=== PATIENT | female | born 1930 | race Caucasian/White ===

== ENCOUNTER 2016-11-03 05:27 | Inpatient (IN) | payer MEDICARE ==
[2016-10-28 13:29] LABS: BASOPHILS 0.5 %; BASOPHILS ABSOLUTE 0.02 10/3/uL (0.0-0.16); EOSINOPHILS 1.8 %; EOSINOPHILS ABSOLUTE 0.07 10/3/uL (0.0-0.53); HEMATOCRIT 37.4 % (36.0-48.0); HEMOGLOBIN 11.8 g/dL (12.0-16.0); IMMATURE GRANULOCYTES 0.3 %; IMMATURE GRANULOCYTES ABSOLUTE 0.01 10/3/uL (0.0-0.11); LYMPHOCYTES 23.7 %; MEAN CORPUS HGB CONC 31.6 g/dL (32.0-36.0); MEAN CORPUSCULAR HEMOGLOB 28.9 pg (26.0-34.0); MEAN CORPUSCULAR VOLUME 91.7 fL (80-100); MONOCYTES 12.1 %; MONOCYTES ABSOLUTE 0.46 10/3/uL (0.21-1.20); NEUTROPHILS 61.6 %; NEUTROPHILS ABSOLUTE 2.33 10/3/uL (2.02-8.40); PLATELET COUNT 227 10/3/uL (150-400); RBC DISTRIBUTION WIDTH 16.7 % (12.0-16.0); RED CELL COUNT 4.08 10/6/uL (4.0-5.6); WHITE BLOOD CELLS 3.8 10/3/uL (4.5-10.5)
[2016-10-28 13:31] LABS: MANUAL DIFF NO %
[2016-10-28 13:35] LABS: ASCORBIC ACID (UR NOT ORDER) NEG (NEG); BILIRUBIN, URINE NEGATIVE (NEG); KETONE, URINE NEGATIVE (NEG); LEUKOCYTE ESTERASE(NOT OR NEG (NEG); WBC (NOT ORDERED) (RFLEX) 3 (0-5)
[2016-10-28 13:39] LABS: INTERNATIONAL NORMAL RATI 1.1 UNITS (-); PROTIME (NOT ORD) 13.6 SEC (12.0-14.5)
[2016-10-28 13:41] LABS: A/G RATIO 1.2 (0.7-1.9); ALBUMIN 3.6 G/DL (3.5-5.0); ALKALINE PHOSPHATASE 88 U/L (45-117); BUN (BLOOD UREA NITROGEN) 18 MG/DL (6-23); CALCIUM, SERUM 9.5 MG/DL (8.5-10.4); CHLORIDE, SERUM 105 MMOL/L (96-112); CO2 (CARBON DIOXIDE) 35 MMOL/L (24-34); CREATININE 0.73 MG/DL (0.55-1.02); GFR AFRICAN AMERICAN 86 ML/MIN (>=60); GFR NON AFRICAN AMERICAN 75 ML/MIN (>=60); GLUCOSE, SERUM 89 MG/DL (60-99); SGOT(AST) 55 U/L (5-40); SGPT(ALT) 44 U/L (5-65); SODIUM, SERUM 143 MMOL/L (135-148); TOTAL BILIRUBIN 0.2 MG/DL (0-1.2); TOTAL PROTEIN 6.6 G/DL (6.0-8.5)
[2016-10-28 13:47] LABS: B NATRIURETIC PEPTIDE (BNP) 329.7 PG/ML (< 100.0)
[2016-10-28 14:00] LABS: GLYCOHEMOGLOBIN (HbA1c) 4.9 % (4.7-6.1)
--- NOTE | ~2016-11-03 | DS ---
Discharge Summary [facility] [address] [place]. [address] NAME: ARBEN STONE : 29 STATUS : DIS IN PAT#: [id number] AGE: 85 ADM/REG DATE : 11/03/16 MR#: [id number] REPORT SERV DATE: 11/23/16 DICTATED BY: MONTRELL LIPSCOMB DATE: 11/22/16 REPORT STATUS : Draft TRANSCRIBED BY: REN DATE: 11/22/16 Data Collection from hospitalization DISCHARGE DIAGNOSES: 1. Aortic stenosis. 2. Hypertension. 3. Coronary artery disease. 4. Chronic obstructive pulmonary disease. 5. Emphysema. 6. Left bundle-branch block. 7. Peripheral vascular disease. 8. Hyperlipidemia. 9. Tobacco use. CONSULTATIONS: Dr. Belgica Rocha, Dr. Juwan Giron. PROCEDURES PERFORMED: Transcatheter aortic valve implantation using a 20 mm Bryan S3 valve from a transthoracic approach; right anterior mini thoracotomy; internal rigid fixation of rib #4 to the sternum; temporary transvenous pacemaker placement, right femoral vein to right ventricle; ascending aortogram; transesophageal echocardiography, 11/03/2016. MEDICATIONS: Cordarone 100 mg daily, Norvasc 5 mg daily, aspirin 81 mg daily, Lipitor 20 mg at bedtime, Plavix 75 mg daily, ferrous sulfate 325 mg twice a day, Prozac 20 mg twice a day, Lasix 20 mg as instructed, melatonin 5 mg at bedtime, Lopressor 12.5 mg twice a day, Protonix 40 mg every morning, Ultram 50 mg three times a day as needed, trazodone 100 mg at bedtime. CONDITION AT DISCHARGE: Stable. DISPOSITION: The patient was discharged home on a 1500-calorie cardiac/diabetic diet with activities as instructed. She would follow up with Zahira Romero, 11/30/2016. She would follow up with Dr. Pineda Delgado, 12/29/2016. She would follow up with Dr. Pineda Bernal, 12/09/2016. HOSPITAL COURSE: This is an 85-year-old female, who has a long history of smoking. She finally stopped smoking last year. She has progressive dyspnea with minimal exertion. She had had multiple falls over the past year with near-syncope and she does admit to postural dizziness, but denied passing out. She does have known severe aortic valvular stenosis. Her most recent echocardiogram demonstrated normal ejection fraction of 60% with mean gradient of 32 and valve area of 0.67. Cardiac catheterization did not demonstrate significant coronary artery disease. On CT angiography, she had severe peripheral vascular disease, which was heavily calcified. She had grade 1 carotid disease bilaterally. She does have significant emphysema with FEV1 of 0.94 and DLCO of 39%. Her major complaint was weakness in the arms and legs. The patient was not felt to be a candidate for transfemoral or subclavian approach. It was felt that she would require a transaortic approach. This would be done to the second and/or third interspace on the right side. This would require intubation with lung isolation, which may presume a challenge; however, it was felt that she would extubate postoperatively. They understood that this was not a standard transcatheter Discharge Summary [address] [address] NAME: ARBEN STONE : 29 STATUS : DIS IN PAT#: [id number] AGE: 85 ADM/REG DATE : 11/03/16 MR#: [id number] REPORT SERV DATE: 11/23/16 DICTATED BY: MONTRELL LIPSCOMB DATE: 11/22/16 REPORT STATUS : Draft TRANSCRIBED BY: REN DATE: 11/22/16 aortic valve replacement procedure and they also understood the possible need for conversion should catastrophic complication occur. She was admitted to the hospital at this time for further evaluation and treatment. Upon admission, the patient was taken to the operating room, where she underwent the above- mentioned procedure by myself and Dr. Juwan Giron. She tolerated this well and there were no complications. Postoperatively, she was seen by Dr. Belgica Rocha. The patient has a greater than 10-vgwa-[id number] history of smoking. She had been smoking up until about a year prior to this admission. She is on inhalers at home and is on at least 1-2 L of oxygen at home. She does have severe chronic obstructive pulmonary disease. Her respiratory status was stable at this point. FiO2 would be weaned for an O2 saturation of 95% to 96%. She is normally on 2 L at home. She was going to be started on DuoNeb. She would be closely observed. Repeat ABG would be performed. We would follow BUN, creatinine, and electrolytes as well as CBC and chest x-ray. On postop day one, she did have some chest soreness. She had mild shortness of breath. She was in a sinus rhythm. She was being diuresed with IV Lasix. Amlodipine was added. She did have some confusion that morning. She had received IV morphine overnight. IV fluids were discontinued. On 11/05/2016, she was up sitting in a chair. She had no chest pain or shortness of breath. She had no groin problems. We encouraged her to increase her activity. Her white count was 14.5. She had no edema. On 11/06/2016, she said she hurt all over. Her encephalopathy was improving. White count was 10.4. She had no shortness of breath. Over the next couple of days, she continued to do well. Discharge planning was performed. She remained in a sinus rhythm. On 11/08/2016, she wanted to go home. She had been up and had taken a shower. She remained in a sinus rhythm-paroxysmal atrial fibrillation. Amiodarone was continued. IV Lasix was stopped. She was placed on oral Lasix. She had no edema. Discharge instructions were given. Due to her improved and stable condition, she was discharged home with the above-stated instructions. Information collected by: Yasmin Allen I submit the above information as my discharge summary. TG/REN Montrell Lipscomb M.D. / [id number] CC: Yoel Barrett M.D. Brian Negus, M.D.
--- NOTE | ~2016-11-03 | OP ---
Record Of Operation [facility] [address]. [address] NAME: ARBEN STONE : 29 STATUS : ADM IN PAT#: [id number] AGE: 85 ADM/REG DATE : 11/03/16 MR#: [id number] REPORT SERV DATE: 11/03/16 DICTATED BY: JUWAN GARY DATE: 11/03/16 REPORT STATUS : Draft TRANSCRIBED BY: MODL DATE: 11/03/16 DATE OF PROCEDURE: TRANSCATHETER VALVE IMPLANTATION PRIMARY TRAILHEAD CONSTRUCTION WORKER: Dr. Delgado. PROCEDURE PERFORMED: 1. Transcatheter aortic valve implantation using a 20 mm Bryan S3 valve from a transaortic approach. 2. Right anterior minithoracotomy. 3. Internal rigid fixation of rib #4 to sternum. 4. Temporary transvenous pacemaker placement right femoral vein to right ventricle. 5. Ascending aortogram. 6. Transesophageal echocardiography. SURGEONS: 1. Fernando Lipscomb MD. 2. Juwan Gary MD. SENIOR SQL SERVER DEVELOPER: Yee Bernal. ANESTHESIA: General and local. SPECIMEN REMOVED: None. ESTIMATED BLOOD LOSS: Less than 50 mL. FLUOROSCOPY TIME: 15.4 minutes, mGy 612. CONTRAST: 120 mL nonionic. COMPLICATIONS: None. PREOPERATIVE DIAGNOSES: 1. Severe aortic stenosis with aortic valve area 0.6 sq cm. 2. Symptomatic with acute on chronic diastolic congestive heart failure. 3. Intermediate surgical risk with STS score of 5.4% mortality and 25% morbidity and mortality. 4. Mild pulmonary hypertension with PA pressure 39/19. 5. Left bundle-branch block. 6. History of GI bleed. 7. COPD. 8. History of tobacco use. 9. Severe peripheral artery disease with inadequate iliac access. 10.Dementia. Record Of Operation [facility] [address] [place]. [address] NAME: ARBEN STONE : 29 STATUS : ADM IN PAT#: [id number] AGE: 85 ADM/REG DATE : 11/03/16 MR#: [id number] REPORT SERV DATE: 11/03/16 DICTATED BY: JUWAN GARY DATE: 11/03/16 REPORT STATUS : Draft TRANSCRIBED BY: MODL DATE: 11/03/16 11.Hyperlipidemia. 12.Hypertension. POSTOPERATIVE DIAGNOSES: 1. Severe aortic stenosis with aortic valve area 0.6 sq cm. 2. Symptomatic with acute on chronic diastolic congestive heart failure. 3. Intermediate surgical risk with STS score of 5.4% mortality and 25% morbidity and mortality. 4. Mild pulmonary hypertension with PA pressure 39/19. 5. Left bundle-branch block. 6. History of GI bleed. 7. COPD. 8. History of tobacco use. 9. Severe peripheral artery disease with inadequate iliac access. 10.Dementia. 11.Hyperlipidemia. 12.Hypertension. 13.Trace perivalvular aortic insufficiency postoperatively. DATA FOR THE VALVE REGISTRY: Time of valve deployment 0944 hours. Preprocedure; mean gradient 29, peak gradient of 33, cardiac output of 2.7 L/minute for an aortic valve area of 0.5 sq cm. Postprocedure; mean gradient of 6, peak gradient of 10 by SHERICE, cardiac output of 3.0 L/minute, and aortic valve area 1.2 sq cm. AI index postoperatively was not performed. Rapid pacing time was 32 seconds. BACKGROUND: Ms. Stone is a very pleasant 85-year-old white woman with severe aortic stenosis symptomatic with acute on chronic diastolic congestive heart failure. She was seen by two cardiac surgeons, Dr. Lipscomb and Dr. Jovel, who felt that she was at least intermediate to high surgical risk due to COPD, dementia, frailty, mild pulmonary hypertension, very poor strength. Her STS score was 5.4% mortality and 25% morbidity and mortality, however, the surgeons felt that this was underestimated and that her operative risk would be higher. She was offered transcatheter aortic valve implantation because of inadequate iliac access or subclavian access. A transaortic approach was considered after this was discussed with the patient and family at length and in detail, and she wished to proceed with transcatheter aortic valve implantation via transaortic approach. TECHNIQUE: After informed written consent was obtained from Ms. Stone, she was brought to the hybrid suite on the morning of 11/03/2006 in the fasting state. The time-out was performed and correct patient and operative plan were confirmed. The patient was prepped and draped in the usual sterile fashion. General anesthesia was performed by the Anesthesia Service. Please see their notes for further details. The local anesthesia in the groin was accomplished using 1% lidocaine. Using modified Seldinger technique and a micropuncture set, a 5-[place] sheath was placed in the right femoral artery with excellent arterial return. The sheath was double flushed and left in place. Femoral angiogram was obtained, which demonstrated good stick in the common femoral artery thought suitable for closure. In a similar manner, a 6-[place] sheath was placed in the right femoral vein with excellent venous return. The sheath was double flushed and left in place. Record Of Operation [facility] [address] [facility] [place]. [address] NAME: ARBEN STONE : 29 STATUS : ADM IN PAT#: [id number] AGE: 85 ADM/REG DATE : 11/03/16 MR#: [id number] REPORT SERV DATE: 11/03/16 DICTATED BY: JUWAN GARY DATE: 11/03/16 REPORT STATUS : Draft TRANSCRIBED BY: REN DATE: 11/03/16 Next, a 5-[place] balloon-tipped pacer catheter was advanced from the RFV to the RV. Threshold was checked, which was less than 0.8 milliamps, this was then set aside. A 5- [place] pigtail catheter was advanced to the central aorta under fluoroscopic guidance. The guidewire was withdrawn, catheter was double flushed. Pressure was obtained. The angles were obtained and ascending aortogram was performed. This was then set aside and continuously flushed. Next, a right anterior minithoracotomy was performed by Dr. Lipscomb. Please see his notes for further details. After exposure of the aorta, concentric pursestring sutures were placed on the aorta. The patient was heparinized to an ACT of greater than 250. Using the modified Seldinger technique and a Seldinger needle, a 6-[place] sheath was placed in the aorta angled in towards the heart under fluoroscopic guidance. The sheath was double flushed and left in place. The first attempt, the sheath was too low on the aorta, the pursestring sutures were closed, and a second stick was performed within new pursestring sutures slightly higher on the aorta. Next, using a multipurpose catheter and a straight guidewire, the aortic valve was crossed. The catheter was then advanced to the LV position and using an exchange J-guidewire, a pigtail catheter was placed. Simultaneous LV and aortic pressures were then obtained. Cardiac output was performed. A preshaped extra stiff wire was then advanced to the LV position. The catheter and sheath were withdrawn from the body. Next, the Davis sheath was placed to approximately 2.5 cm depth and backflushed. Next, the 20 mm Bryan S3 valve was brought to the table on the short shaft, the orientation was confirmed. This was advanced over the wire to the aortic valve position. When all was in readiness, fine positioning was performed and the sequence was commenced. Respirations were held. Rapid pacing was performed. The pressure fell. Power injection was performed, demonstrated good position. The valve was then deployed. The balloon was deflated. Rapid pacing was ceased. Respirations were resumed. Followup angiography revealed significant aortic insufficiency. Transesophageal echocardiogram confirmed that this appeared to be perivalvular as well as centrivalvular. The wire position was lost, but easily rewired with the J-wire and the multipurpose catheter. Next, the balloon was brought back to the table, 2 mL were added, and this was advanced to the aortic valve position. The sequence was commenced again and postdilatation was performed. The balloon was deflated and removed from the body. Followup SHERICE revealed only trace perivalvular aortic insufficiency. This was felt to be an acceptable result as the balloon was brought out, wire position was lost. This was not reestablished since the result by SHERICE looked good and the valve appeared further expanded following the second inflation. The equipment was then removed. The Davis sheath was removed. The pursestring sutures were tightened with good hemostasis. There were no bleeding and no hematoma. Next, the 5-[place] sheath was removed and Exoseal closure device was used. This required adjunctive manual compression. The pacer and right femoral venous sheath was left in place. The [place]a catheter was removed under fluoroscopic guidance and the pacer remained in place. The 4th rib that had been transected, was repaired with internal rigid fixation using titanium plating, and the wound was closed in the usual fashion. A single 24-[place] right pleural drain was placed. The patient tolerated procedure well without apparent complication. She was then returned to her room in good condition. Recommendations are for aspirin 81 mg p.o. daily and Plavix 75 mg p.o. daily for at least six months and aspirin Record Of [facility] [address] [place]. [address] NAME: ARBEN STONE : 29 STATUS : ADM IN PAT#: [id number] AGE: 85 ADM/REG DATE : 11/03/16 MR#: [id number] REPORT SERV DATE: 11/03/16 DICTATED BY: JUWAN GARY DATE: 11/03/16 REPORT STATUS : Draft TRANSCRIBED BY: REN DATE: 11/03/16 indefinitely. YISEL/REN Juwan Gary M.D. / [id number] CC: Yoel Barrett M.D. William Warren, M.D.
--- NOTE | ~2016-11-03 | OP ---
Record Of Operation [facility] [address] [place]. [address] NAME: ARBEN STONE : 29 STATUS : ADM IN PAT#: [id number] AGE: 85 ADM/REG DATE : 11/03/16 MR#: [id number] REPORT SERV DATE: 11/05/16 DICTATED BY: MONTRELL LIPSCOMB DATE: 11/04/16 REPORT STATUS : Draft TRANSCRIBED BY: MODMaurisio DATE: 11/04/16 DATE OF PROCEDURE: 11/03/2016 PREOPERATIVE DIAGNOSES: 1. Aortic valve stenosis. 2. Acute on chronic diastolic congestive heart failure. 3. Left bundle-branch block. 4. Chronic obstructive pulmonary disease. 5. History of gastrointestinal bleed. 6. Near syncope. 7. Hypertension. 8. Peripheral vascular disease. 9. History of tobacco abuse. POSTOPERATIVE DIAGNOSES: 1. Aortic valve stenosis. 2. Acute on chronic diastolic congestive heart failure. 3. Left bundle-branch block. 4. Chronic obstructive pulmonary disease. 5. History of gastrointestinal bleed. 6. Near syncope. 7. Hypertension. 8. Peripheral vascular disease. 9. History of tobacco abuse. PROCEDURE PERFORMED: 1. Trans-aortic transcatheter aortic valve replacement using a 20 mm S3 pericardial valve (WENDY). 2. Right anterior mini-thoracotomy. 3. Internal rigid fixation of rib #4 to the sternum. 4. Aortography. 5. Right transfemoral temporary ventricular pacing wire. 6. Transesophageal echocardiography. SURGEON: Montrell Lipscomb M.D. ASSISTANTS: Juwan Giron M.D. and Ronnie Pickett M.D. ANESTHESIA: General with Dr. Juarez. URBAN ANTHROPOLOGIST: Pineda Bernal M.D., Ph.D, F.A.C.C. PRIMARY RESOURCE ROOM SPECIAL EDUCATION TEACHER: Pineda Delgado M.D. INDICATIONS: This is an 85-year-old female with long history of smoking and quit smoking last year after multiple admissions to the hospital for shortness of breath and fainting Record Of Operation [facility] [address] [place]. [address] NAME: ARBEN STONE : 29 STATUS : ADM IN PAT#: [id number] AGE: 85 ADM/REG DATE : 11/03/16 MR#: [id number] REPORT SERV DATE: 11/05/16 DICTATED BY: MONTRELL LIPSCOMB DATE: 11/04/16 REPORT STATUS : Draft TRANSCRIBED BY: MODL DATE: 11/04/16 like symptoms from October until April. She has had progressive dyspnea with minimal exertion and near syncope and an episode in the last year with multiple falls that she attributes to dizziness. She has known aortic valve stenosis. It was felt to be severe. Her valve area was estimated at 0.67 square centimeter with a mean gradient across the valve at 32 mmHg and ejection fraction of 60%. She underwent a cardiac catheterization, which did not demonstrate any surgically significant coronary artery disease but she has severe peripheral vascular disease with vessels that are very small and heavily calcified and not approachable through a transfemoral or subclavian route for TAVR procedure. We saw the patient in the TAVR Clinic, and it was felt that she was a reasonable candidate for TAVR using an alternative approach. It was felt that the most likely successful approach would be a trans-aortic through a right mini thoracotomy anteriorly. This was discussed with the patient and her family and after discussing the operations, indication, risks, they wished to proceed. Her preoperative FEV1 was 0.94 L with a DLCO of only 39%. Because the patient was at elevated surgical risks for aortic valve replacement in the traditional trans-sternal route, she was offered a TAVR procedure. FINDINGS AT OPERATION: 1. Total time of rapid pacing was 32 seconds. Actual time of TAVR deployment was 09:44 a.m. 2. Cardiac output pre-deployment 2.7, post-deployment 3.0 L/minute. 3. Valve area pre-deployment 0.53, valve area post-deployment 1.22 square centimeter. 4. Pre-implant aortic pressures: Systolic 175, diastolic 66, mean 107 mmHg. 5. Postimplant aortic pressures: Pre-systolic 126, diastolic 46, mean 69 mmHg. 6. Pre-implant AV gradient; mean 29, peak 33 mmHg. Post-implant AV gradient mean 6, peak 10 mmHg. 7. Total contrast volume used 120 mL. 8. Fluro time 15.4 minutes. 9. Estimated blood loss less than 50 mL. 10.Total mGy used was 612. 11.Aortic index was not calculated at the time of implantation. PATHOLOGIC SPECIMENS: None. DESCRIPTION OF PROCEDURE: The patient was brought to the operating suite where general anesthesia was induced, and the airway was secured with a dual lumen endotracheal tube. Lines secured by Anesthesia. The patient's SHERICE probe was placed, and examination carried out confirming severe aortic valve stenosis. Microneedle access to the right femoral artery vein were obtained, and a 6-Cymraes introducers were placed into both vessels after confirmation angiography was performed of right femoral iliac system. A pigtail catheter was placed over guidewire into the ascending aorta and secured in the noncoronary cusps, and contrast aortography was used to confirm imaging planes for implantation of the valve. Then, a temporary transvenous pacing wire was placed up the right femoral vein into the right ventricle, and this was secured after confirming capture for pacing. Record Of Operation [facility] [address] [facility] [place]. [address] NAME: ARBEN STONE : 29 STATUS : ADM IN PAT#: [id number] AGE: 85 ADM/REG DATE : 11/03/16 MR#: [id number] REPORT SERV DATE: 11/05/16 DICTATED BY: MONTRELL LIPSCOMB DATE: 11/04/16 REPORT STATUS : Draft TRANSCRIBED BY: REN DATE: 11/04/16 Then, right anterior thoracotomy incision was made paramedian to the sternum on the right side and carried through subcutaneous tissue. The third intercostal space was identified and the fourth rib was divided at its attachment to the sternum. We then continued our dissection through the intercostal musculature, and the internal mammary artery and vein were ligated with clips and divided. This allowed us good exposure of the ascending aorta and pericardium. The pericardium was incised, and tacking sutures placed. Then, heparin was administered by Anesthesia. Two concentric pursestring sutures with pledgets were placed in the lateral wall of the ascending aorta just near the pericardial reflection. Needle was placed in the ascending aorta and guidewire and a 6-Cymraes introducer placed at this level. We then placed an AL1 catheter and guidewire through the 6-Cymraes introducer and used this across the valve. Then, this AL1 catheter was removed and exchanged for a pigtail catheter over the wire that was through the aortic valve. Pressure measurements were obtained and then the Extra-Stiff wire placed through the pigtail catheter into the left ventricle and the pigtail catheter removed. The introducer and sheath, we then placed over the Extra-Stiff wire and directed into the ascending aorta. Then, the valve delivery system was brought up to the field. Orientation of the valve was confirmed. The valve delivery system was then placed into the introducer sheath and lowered across the valve. Contrast aortography was performed to allow good visualization of the position of the valve. Once positioning was secured, rapid atrial pacing was performed, and the valve deployed using the pre-loaded balloon. Once this was completed, the valve delivery system and balloon were brought out of the valve into the sheath. Contrast aortography demonstrated aortic insufficiency, and SHERICE demonstrated mild aortic insufficiency. It was decided after discussion to go ahead and do post implantation dilatation of the valve using the balloon delivery system. The syringe was then loaded with 2 more mL of contrast. The balloon was then delivered across the valve over the Extra-Stiff wire. Rapid ventricular pacing was again performed, and the balloon was inflated for several seconds. The balloon was then deflated and brought back into the delivery system sheath. The balloon was then withdrawn over the guidewire and the guidewire removed. Contrast aortography using the pigtail catheter demonstrated minimal aortic insufficiency. SHERICE demonstrated just a trivial perivalvular leak. At this point, the sheath was removed from the ascending aorta with temporary rapid ventricular pacing and the pursestring sutures tied and secured. Rapid pacing was discontinued then. The patient was doing well. There was good hemostasis of the pursestring sutures. Protamine was administered by Anesthesia for reversal of heparin. Then, the chest was irrigated with saline. A 24 Juan drain was placed through the right chest and directed Record Of Operation [address] [address] NAME: ARBEN STONE : 29 STATUS : ADM IN [facility]#: [id number] AGE: 85 ADM/REG DATE : 11/03/16 MR#: [id number] REPORT SERV DATE: 11/05/16 DICTATED BY: MONTRELL LIPSCOMB DATE: 11/04/16 REPORT STATUS : Draft TRANSCRIBED BY: MODMaurisio DATE: 11/04/16 over the pericardium near the aortotomy site. The pericardial retaining sutures were removed and then the closure was begun. The fourth, third rib was then reattached to the sternum using a single straight titanium plate and 4 titanium screws. The clavipectoral fascia and pectoralis muscle reapproximated over the rib space with Stratafix suture. The subcutaneous tissue was closed and skin closed in subcuticular fashion. The patient tolerated the procedure well. The pigtail catheter and 6-Cymraes introducer sheath removed from the right femoral artery, and this site was closed with the occlusion device. The temporary pacemaker in the right femoral vein was removed and the sheath left in place for postoperative monitoring and in case of need for pacing at a later time. Finally, the Orlando-Daniela catheter that was left in place during this time was removed in the intensive care unit. The patient tolerated the procedure well. There were no complications. Sponge and needle counts were correct. DISPOSITION: The patient was extubated in the operating suite and transported to the Intensive Care Unit in stable condition. WILIAM/REN Montrell Lipscomb M.D. / [id number] CC: Yoel Barrett M.D. Pineda Bernal M.D., Ph.D, F.A.C.C. Pineda Delgado M.D.
--- NOTE | ~2016-11-03 | PREOPHP ---
PreOp History and Physical [place] [id number] [facility] [place]. [address] NAME: ARBEN STONE : 29 STATUS : ADM IN PAT#: [id number] AGE: 85 ADM/REG DATE : 11/03/16 MR#: [id number] REPORT SERV DATE: 11/03/16 DICTATED BY: AMARJIT SPENCER DATE: 11/03/16 REPORT STATUS : Draft TRANSCRIBED BY: REN DATE: 11/03/16 CHIEF COMPLAINT: "I have aortic stenosis." HISTORY OF PRESENT ILLNESS: This is a very pleasant 85-year-old female with a long history of smoking, who finally quit smoking last year. She has progressive dyspnea with minimal exertion. She has had multiple falls in the past year with near-syncope and admits to postural dizziness, but denies passing out. She has known severe aortic valvular stenosis. Her most recent echocardiogram demonstrated normal EF of 60% with a mean gradient of 32 and a valve area of 0.67. Cardiac catheterization did not demonstrate significant coronary artery disease. On CT angio, she has severe peripheral vascular disease which is heavily calcified. She has grade 1 carotid disease bilaterally. She has significant emphysema with an FEV1 of 0.94 and a DLCO of 39%. Major complaint is weakness in the arms and legs. PAST MEDICAL HISTORY: 1. Dizziness. 2. Emphysema. 3. Left bundle branch block. 4. GI bleed. 5. Aortic stenosis. 6. Mild coronary artery disease. 7. Carotid disease. 8. Hyperlipidemia. 9. Hypertension. 10.Peripheral vascular disease. FAMILY HISTORY: Brother a premature of coronary artery disease. SOCIAL HISTORY: Recent smoking history. MEDICATIONS: 1. Amiodarone 200 mg, take one-half tablet orally every day. 2. Lipitor 20 mg daily. 3. Enalapril 5 mg/hydrochlorothiazide 12.5 mg, take 1 tablet every day. 4. Iron sulfate 325 mg, take 1 every day. 5. Fluoxetine 20 mg, take one 2 times a day. 6. Lasix 20 mg, take 1 every Tuesday as needed. 7. Melatonin 5 mg at bedtime. 8. Multivitamin 1 daily at bedtime. 9. Tylenol 500 mg as needed. 10.Protonix 40 mg p.o. b.i.d. 11.Senokot 8.6 mg p.o. daily. 12.Tramadol 50 mg p.o. 3 times daily as needed. REVIEW OF SYSTEMS: CONSTITUTIONAL: Negative for fever. Positive for activity change, fatigue, irritability, and weakness. EYES: Negative for visual changes. PreOp History and Physical [address] [place]. [address] NAME: ARBEN STONE : 29 STATUS : ADM IN PAT#: [id number] AGE: 85 ADM/REG DATE : 11/03/16 MR#: [id number] REPORT SERV DATE: 11/03/16 DICTATED BY: AMARJIT SPENCER DATE: 11/03/16 REPORT STATUS : Draft TRANSCRIBED BY: REN DATE: 11/03/16 ENT: Negative for hearing loss. RESPIRATORY: Negative for snoring, hemoptysis. Positive for dyspnea and dyspnea on exertion. CARDIAC: Negative for diaphoresis, palpitations, syncope. Positive for near syncope and orthopnea. VASCULAR: Negative for claudication or edema. Positive for leg swelling. GI: Negative for reflux or bleeding. Positive for melena. : Negative for nocturia or hematuria. ENDOCRINE: Negative for goiter or tremor. NEUROLOGIC: Negative for dizziness, memory loss. PSYCH: Negative for hallucinations. SKIN: Negative for rash. MUSCULOSKELETAL: Denies joint pain or myalgia. HEMATOLOGY: Denies easy bleeding or bruising. PHYSICAL EXAMINATION: CONSTITUTIONAL: A well-developed, well-nourished white female, in no acute distress. EYES: Normal sclerae. NECK: No masses, no bruits. RESPIRATORY: Clear to auscultation bilaterally. HEART: Regular rate and rhythm. Holosystolic murmur heard at the right upper sternal border. ABDOMEN: Soft, nontender, nondistended. SKIN: Warm and dry. NEUROLOGIC: Cranial nerves 2 through 12 grossly intact. PSYCH: Oriented to person, time, place, and procedure. IMPRESSION AND PLAN: An 85-year-old female with a long history of smoking and significant aortic valvular stenosis. Her STS predicted risk of mortality with open valvular replacement is at least 5.4%. I think this severely underestimates her risk secondary to her severe COPD and an age. She is not a candidate for transfemoral or subclavian approach. She will require transaortic approach. This will be done through the second and/or third interspace on the right side. 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 She understands that this is not a standard transcatheter aortic valve replacement procedure. They also understand the possible need for conversion should catastrophic complication occur. Risks, benefits, and alternatives were discussed including but not limited to, bleeding, infection, stroke, , heart attack, need for future operations, and need for pacemaker. All questions were answered. OG/REN arjit Spencer MD PreOp History and Physical [address] [address] NAME: ARBEN STONE : 29 STATUS : ADM IN [facility]#: [id number] AGE: 85 ADM/REG DATE : 11/03/16 MR#: [id number] REPORT SERV DATE: 11/03/16 DICTATED BY: AMARJIT SPENCER DATE: 11/03/16 REPORT STATUS : Draft TRANSCRIBED BY: REN DATE: 11/03/16 / [id number] CC: Yoel Barrett M.D.
--- NOTE | ~2016-11-03 | CN ---
Consultation Report [facility] [address] [place]. [address] NAME: ARBEN STONE : 29 STATUS : ADM IN PAT#: [id number] AGE: 85 ADM/REG DATE : 11/03/16 MR#: [id number] REPORT SERV DATE: 11/03/16 DICTATED BY: FREDRICK ROCHA DATE: 11/03/16 REPORT STATUS : Draft TRANSCRIBED BY: MODL DATE: 11/03/16 DATE OF CONSULTATION: 11/03/2016 HISTORY OF PRESENT ILLNESS: This is an 85-year-old patient whom we were asked to see for pulmonary and COPD management status post TAVR. The patient has known COPD and has a greater than [id number] history of smoking and had been smoking probably up until a year ago. She has been seen by the pulmonary service before and her most recent pulmonary function tests showed a forced vital capacity of 91% predicted and an FEV1 of 0.94 which is 74% predicted. Total lung capacity is 132% with increased residual volume and DLCO was 39% predicted. The patient is on inhalers at home and is on at least 1-2 L of oxygen at home. She has known severe aortic stenosis and was not deemed to be a candidate for conventional open chest aortic valve replacement and was scheduled for a TAVR and required a transaortic approach since she has severe calcification of the aorta and has a known peripheral vascular disease. This was done today. She currently is extubated, responsive, and on oxygen. She is on no pressors. So, we are asked to see her for postoperative care. ALLERGIES: TO PENICILLIN, BENADRYL, CODEINE, AND XANAX. HOME MEDICATIONS: Include Cordarone, Prozac, Lasix, melatonin, Protonix, trazodone, Ultram, Vaseretic, ProAir, ferrous sulfate, Lipitor, and Tylenol. PAST MEDICAL HISTORY: Includes, 1. AFib, not anticoagulated for AFib because of recurrent GI bleeding. Her last admission for GI bleed was in 02/2016. She did have an EGD and colonoscopy done in 02/2016 that showed several diverticula in the sigmoid colon, two small angioectasias in the ascending colon. No other significant abnormalities. EGD showed a small hiatus hernia and no other significant findings. 2. History of left bundle-branch block. 3. History of frequent falls and dizziness. 4. COPD and emphysema. 5. Mild coronary artery disease. 6. Aortic stenosis. 7. Carotid disease. 8. Hypertension. 9. Peripheral vascular disease. 10.Osteoarthritis. 11.Deconditioning. 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 13.Hyperlipidemia. PAST SURGICAL HISTORY: 1. The patient has history of coronary artery stenting done by Dr. Rivas in 2008. 2. Cardiac cath in 2012. 3. Left carotid artery stent placement. Consultation Report [address] [address] NAME: ARBEN STONE : 29 STATUS : ADM IN PAT#: [id number] AGE: 85 ADM/REG DATE : 11/03/16 MR#: [id number] REPORT SERV DATE: 11/03/16 DICTATED BY: FREDRICK ROCHA DATE: 11/03/16 REPORT STATUS : Draft TRANSCRIBED BY: REN DATE: 11/03/16 4. Bladder tack. 5. C-spine fusion. 6. Total abdominal hysterectomy. 7. Appendectomy. 8. Breast lumpectomy. 9. Epidural disk injection. 10.Lumbar disk injection. 11.Breast cyst removal and skin cancer melanoma removal. FAMILY HISTORY: Significant for coronary artery disease and hypertension. SOCIAL HISTORY: The patient is a , has three children. She has a history of smoking as mentioned above. There is no history of alcohol or illicit drug use. REVIEW OF SYSTEMS: The biggest complaint for the patient is back pain at this point. She denies any nausea, vomiting, shortness of breath, or abdominal pain, and the remainder of a 10-point review of systems is unremarkable. PHYSICAL EXAMINATION: VITAL SIGNS: Her heart rate is 73, blood pressure by A-line is 158/53, O2 saturation is 100%, cuff pressure is 104/69. She is afebrile. Respiratory rate is 18-22. GENERAL: The patient appears somewhat pale. She is responsive. SKIN: Warm and dry. HEENT: Head is atraumatic and normocephalic. Pupils are equal and sluggish. Sclerae anicteric. Conjunctivae pink. Nasal mucosa within normal limits. Oral mucosa is slightly dry. NECK: With right internal jugular central line. No thyromegaly is noted. LUNGS: Significant for diminished breath sounds at the bases. No wheezing. CARDIAC: Reveals a regular rate and rhythm. Soft 2/6 systolic murmur heard at the left sternal border. Choctaw valve sounds are heard. There is a small incision in the midsternal area that is transverse. BREASTS: Symmetrical. No masses. ABDOMEN: Obese, nondistended, nontender. Bowel sounds are present, but diminished. She has a Wesley catheter in place and she has a right femoral pacemaker in place. EXTREMITIES: Without cyanosis or clubbing. There is trace edema. NEUROLOGIC: Cranial nerves 2 through 12 are grossly intact. Motor and sensory are intact and there are no focal findings at this exam. LABORATORY DATA: Chest x-ray shows mild pulmonary vascular congestion. Sodium is 145, potassium is 3.8, chloride is 111, bicarb is 24, BUN 17, creatinine 0.56. Blood sugar 133. Magnesium is 1.7. Hemoglobin is 10, hematocrit is 32. ASSESSMENT AND PLAN: This is an 85-year-old patient with severe chronic obstructive pulmonary disease, peripheral vascular disease, aortic stenosis, mild coronary artery Consultation Report [place] [id number] [place]. [address] NAME: ARBEN STONE : 29 STATUS : ADM IN [facility]#: [id number] AGE: 85 ADM/REG DATE : 11/03/16 MR#: [id number] REPORT SERV DATE: 11/03/16 DICTATED BY: FREDRICK ROCHA DATE: 11/03/16 REPORT STATUS : Draft TRANSCRIBED BY: REN DATE: 11/03/16 disease, history of gastrointestinal bleed, who was not considered to be a candidate for aortic valve replacement by conventional means. She is status post aortic approach for transcatheter aortic valve replacement today and we are asked to see her postoperatively mostly because of her chronic obstructive pulmonary disease. At this time, the patient's respiratory status is stable. We will wean the FiO2 for an O2 saturation of 95-96. She is normally on 2 L at home. We will start DuoNeb. We will observe the patient closely, repeat an ABG now, and follow BUN, creatinine, and electrolytes as well as CBC and a chest x-ray tomorrow. We will follow the patient with you. Thank you for your consultation. BRENDEN/REN Fredrick Rocha M.D. / [id number] CC: Yoel Barrett M.D.
[~2016-11-03 05:27] MED LIST: ACET500CAP PO; ALBUTEROL 2.5 MG PO; ALBUTEROL5 INH; ASAB PO; ATV1 PO; BONIVA150 MG PO; BUSPAR15 M1 PO; CALTRA600D PO; CELEBREX2 PO; CENTRUM PO; CORDARONE PO; CRANBERRY AZO PO; CRESTOR40 MG PO; CYANO1000T PO; DULERA 100 MCG/13 GM INH; ENALAPRIL/HCTZ PO; FERREX 150150 MG PO; FERROUS SULF325 M1 PO; FOSAMAX70 MG PO; HALF81 PO; HYDROCHLOROT12.5 MG PO; KLOR-CON 1010 MEQ PO; L20 PO; LIPITOR20 PO; LIPITOR40 PO; LIPITOR80 MG PO; MELA3 PO; MICROZIDE PO; MOBIC15 MG PO; MULTIPLE VIT PO; MYCOSCROI TOP; OS500+D PO; PLAVIX PO; PROAIR HFA INH; PROTONIX PO; PROVHFA INH; PROZ10 PO; PROZAC PO; SALON PAS TOP; SENTAB PO; SPIRIVA INH; T PO; TRAZODONE150 MG PO; TYLENOL PM PO; ULTRAM50 PO; VASERETIC5 PO; VASOTEC10 PO; VASOTEC5 PO; VENTOLIN HFA INH; VITAMIN B-121000 MC1 SL; VITAMIN D1000 UNI1 PO; VITAMIN D31000 UNIT PO; VITC500 PO
[2016-11-03 11:28] LABS: HEMOGLOBIN 10.2 g/dL (12.0-16.0); PLATELET COUNT 166 10/3/uL (150-400)
[2016-11-03 11:37] LABS: INTERNATIONAL NORMAL RATI 1.2 UNITS (-); PROTIME (NOT ORD) 14.9 SEC (12.0-14.5)
[2016-11-03 11:39] LABS: BUN (BLOOD UREA NITROGEN) 17 MG/DL (6-23); CALCIUM, SERUM 8.6 MG/DL (8.5-10.4); CHLORIDE, SERUM 111 MMOL/L (96-112); CREATININE 0.56 MG/DL (0.55-1.02); GFR AFRICAN AMERICAN 98 ML/MIN (>=60); GFR NON AFRICAN AMERICAN 84 ML/MIN (>=60); POTASSIUM, SERUM 3.8 MMOL/L (3.5-5.3); SODIUM, SERUM 145 MMOL/L (135-148)
[2016-11-03 11:40] LABS: CO2 (CARBON DIOXIDE) 29 MMOL/L (24-34); GLUCOSE, SERUM 133 MG/DL (60-99)
[2016-11-03 18:41] LABS: HEMATOCRIT 32.4 % (36.0-48.0); HEMOGLOBIN 10.2 g/dL (12.0-16.0)
[2016-11-03 18:50] LABS: BUN (BLOOD UREA NITROGEN) 16 MG/DL (6-23); CALCIUM, SERUM 8.1 MG/DL (8.5-10.4); CHLORIDE, SERUM 111 MMOL/L (96-112); CO2 (CARBON DIOXIDE) 30 MMOL/L (24-34); CREATININE 0.59 MG/DL (0.55-1.02); GFR AFRICAN AMERICAN 96 ML/MIN (>=60); GFR NON AFRICAN AMERICAN 83 ML/MIN (>=60); POTASSIUM, SERUM 3.9 MMOL/L (3.5-5.3); SODIUM, SERUM 146 MMOL/L (135-148)
[2016-11-03 18:52] LABS: GLUCOSE, SERUM 60 MG/DL (60-99)
[2016-11-04 03:32] LABS: BE (BASE EXCESS) -1.2 MEQ/L (0 +/- 2.5); HCO3 (ACTUAL BICARBONATE) 24.2 MEQ/L (23-27); INSTRUMENT SERIAL # 11843; PCO2 (CO2 TENSION) 44 MMHG (35-45); PO2 (O2 TENSION) 86 MMHG (79-93); pH 7.36 (7.37-7.43)
[2016-11-04 03:33] LABS: BIPAP 18/5 cm.H2O; CARBOXYHEMOGLOBIN 0.3 % (0-3); HEMOBLOGIN CONTENT 10.3 G/DL (12-16); METHEMOGLOBIN 0.5 % (0-3); O2 CONTENT 13.8 VOL% (18-24); OPERATOR ID 23712; SAMPLE Arterial
[2016-11-04 03:35] LABS: BASOPHILS 0 %; EOSINOPHILS 0 %; HEMATOCRIT 29.6 % (36.0-48.0); HEMOGLOBIN 9.3 g/dL (12.0-16.0); IMMATURE GRANULOCYTES 0.2 %; IMMATURE GRANULOCYTES ABSOLUTE 0.03 10/3/uL (0.0-0.11); LYMPHOCYTES 5.8 %; LYMPHOCYTES ABSOLUTE 0.72 10/3/uL (0.67-4.30); MANUAL DIFF NO %; MEAN CORPUS HGB CONC 31.4 g/dL (32.0-36.0); MEAN CORPUSCULAR VOLUME 92.2 fL (80-100); MEAN PLATELET VOLUME 10.3 fL (9.2-13.0); MONOCYTES ABSOLUTE 0.98 10/3/uL (0.21-1.20); NEUTROPHILS ABSOLUTE 10.59 10/3/uL (2.02-8.40); PLATELET COUNT 161 10/3/uL (150-400); RBC DISTRIBUTION WIDTH 16.8 % (12.0-16.0); RED CELL COUNT 3.21 10/6/uL (4.0-5.6); WHITE BLOOD CELLS 12.3 10/3/uL (4.5-10.5)
[2016-11-04 03:42] LABS: BUN (BLOOD UREA NITROGEN) 17 MG/DL (6-23); CALCIUM, SERUM 8.4 MG/DL (8.5-10.4); CHLORIDE, SERUM 111 MMOL/L (96-112); CO2 (CARBON DIOXIDE) 27 MMOL/L (24-34); CREATININE 0.74 MG/DL (0.55-1.02); GFR AFRICAN AMERICAN 85 ML/MIN (>=60); GFR NON AFRICAN AMERICAN 73 ML/MIN (>=60); PHOSPHORUS, SERUM 2.6 MG/DL (2.5-4.5); POTASSIUM, SERUM 4.1 MMOL/L (3.5-5.3); SODIUM, SERUM 145 MMOL/L (135-148)
[2016-11-04 03:43] LABS: GLUCOSE, SERUM 93 MG/DL (60-99)
[2016-11-04 10:22] LABS: ASCORBIC ACID (UR NOT ORDER) NEG (NEG); BILIRUBIN, URINE NEGATIVE (NEG); KETONE, URINE TRACE MG/DL (NEG); LEUKOCYTE ESTERASE(NOT OR NEG (NEG); WBC (NOT ORDERED) (RFLEX) 3 (0-5)
[2016-11-04 12:27] LABS: BUN (BLOOD UREA NITROGEN) 16 MG/DL (6-23); CALCIUM, SERUM 8.7 MG/DL (8.5-10.4); CHLORIDE, SERUM 110 MMOL/L (96-112); CO2 (CARBON DIOXIDE) 28 MMOL/L (24-34); CREATININE 0.72 MG/DL (0.55-1.02); GFR AFRICAN AMERICAN 88 ML/MIN (>=60); GFR NON AFRICAN AMERICAN 76 ML/MIN (>=60); GLUCOSE, SERUM 118 MG/DL (60-99); POTASSIUM, SERUM 3.7 MMOL/L (3.5-5.3); SODIUM, SERUM 144 MMOL/L (135-148)
[2016-11-04 15:50] LABS: HEMOGLOBIN 10.6 g/dL (12.0-16.0)
[2016-11-04 15:54] LABS: HEMATOCRIT 34.1 % (36.0-48.0)
[2016-11-04 15:55] LABS: POTASSIUM, SERUM 4.4 MMOL/L (3.5-5.3)
[2016-11-05 03:39] LABS: BASOPHILS 0.1 %; BASOPHILS ABSOLUTE 0.01 10/3/uL (0.0-0.16); EOSINOPHILS 0 %; HEMATOCRIT 31.2 % (36.0-48.0); HEMOGLOBIN 9.9 g/dL (12.0-16.0); IMMATURE GRANULOCYTES 0.4 %; IMMATURE GRANULOCYTES ABSOLUTE 0.06 10/3/uL (0.0-0.11); LYMPHOCYTES 3.8 %; LYMPHOCYTES ABSOLUTE 0.55 10/3/uL (0.67-4.30); MANUAL DIFF NO %; MEAN CORPUS HGB CONC 31.7 g/dL (32.0-36.0); MEAN CORPUSCULAR HEMOGLOB 29.3 pg (26.0-34.0); MEAN CORPUSCULAR VOLUME 92.3 fL (80-100); MEAN PLATELET VOLUME 11.2 fL (9.2-13.0); MONOCYTES 11.9 %; MONOCYTES ABSOLUTE 1.72 10/3/uL (0.21-1.20); NEUTROPHILS 83.8 %; NEUTROPHILS ABSOLUTE 12.11 10/3/uL (2.02-8.40); PLATELET COUNT 131 10/3/uL (150-400); RBC DISTRIBUTION WIDTH 17.9 % (12.0-16.0); RED CELL COUNT 3.38 10/6/uL (4.0-5.6); WHITE BLOOD CELLS 14.5 10/3/uL (4.5-10.5)
[2016-11-05 04:00] LABS: BUN (BLOOD UREA NITROGEN) 18 MG/DL (6-23); CALCIUM, SERUM 8.4 MG/DL (8.5-10.4); CHLORIDE, SERUM 109 MMOL/L (96-112); CO2 (CARBON DIOXIDE) 30 MMOL/L (24-34); CREATININE 0.64 MG/DL (0.55-1.02); GFR AFRICAN AMERICAN 94 ML/MIN (>=60); GFR NON AFRICAN AMERICAN 81 ML/MIN (>=60); GLUCOSE, SERUM 113 MG/DL (60-99); POTASSIUM, SERUM 3.9 MMOL/L (3.5-5.3); SGOT(AST) 215 U/L (5-40); SGPT(ALT) 92 U/L (5-65); SODIUM, SERUM 142 MMOL/L (135-148); TOTAL BILIRUBIN 0.5 MG/DL (0-1.2); TOTAL PROTEIN 5.4 G/DL (6.0-8.5)
[2016-11-05 04:09] LABS: ALBUMIN 2.7 G/DL (3.5-5.0); ALKALINE PHOSPHATASE 56 U/L (45-117); GLOBULIN 2.7 G/DL (2.5-4.1)
[2016-11-06 05:21] LABS: BASOPHILS 0.1 %; BASOPHILS ABSOLUTE 0.01 10/3/uL (0.0-0.16); EOSINOPHILS 0.1 %; EOSINOPHILS ABSOLUTE 0.01 10/3/uL (0.0-0.53); HEMATOCRIT 29.8 % (36.0-48.0); HEMOGLOBIN 9.5 g/dL (12.0-16.0); IMMATURE GRANULOCYTES 0.1 %; IMMATURE GRANULOCYTES ABSOLUTE 0.01 10/3/uL (0.0-0.11); LYMPHOCYTES 4.1 %; LYMPHOCYTES ABSOLUTE 0.42 10/3/uL (0.67-4.30); MEAN CORPUS HGB CONC 31.9 g/dL (32.0-36.0); MEAN CORPUSCULAR HEMOGLOB 29.4 pg (26.0-34.0); MEAN CORPUSCULAR VOLUME 92.3 fL (80-100); MEAN PLATELET VOLUME 11.3 fL (9.2-13.0); MONOCYTES 11.6 %; NEUTROPHILS ABSOLUTE 8.72 10/3/uL (2.02-8.40); PLATELET COUNT 115 10/3/uL (150-400); RBC DISTRIBUTION WIDTH 18.1 % (12.0-16.0); RED CELL COUNT 3.23 10/6/uL (4.0-5.6); WHITE BLOOD CELLS 10.4 10/3/uL (4.5-10.5)
[2016-11-06 05:22] LABS: MANUAL DIFF NO %
[2016-11-06 05:27] LABS: INTERNATIONAL NORMAL RATI 1.2 UNITS (-); PROTIME (NOT ORD) 15.4 SEC (12.0-14.5)
[2016-11-06 05:38] LABS: ALBUMIN 2.6 G/DL (3.5-5.0); ALKALINE PHOSPHATASE 60 U/L (45-117); BUN (BLOOD UREA NITROGEN) 19 MG/DL (6-23); CALCIUM, SERUM 8.5 MG/DL (8.5-10.4); CHLORIDE, SERUM 108 MMOL/L (96-112); CO2 (CARBON DIOXIDE) 29 MMOL/L (24-34); CREATININE 0.55 MG/DL (0.55-1.02); GFR AFRICAN AMERICAN 98 ML/MIN (>=60); GFR NON AFRICAN AMERICAN 85 ML/MIN (>=60); GLOBULIN 2.7 G/DL (2.5-4.1); PHOSPHORUS, SERUM 1.8 MG/DL (2.5-4.5); POTASSIUM, SERUM 3.9 MMOL/L (3.5-5.3); SGOT(AST) 120 U/L (5-40); SGPT(ALT) 74 U/L (5-65); SODIUM, SERUM 143 MMOL/L (135-148); TOTAL PROTEIN 5.3 G/DL (6.0-8.5)
[2016-11-06 05:39] LABS: GLUCOSE, SERUM 85 MG/DL (60-99)
[2016-11-07 04:45] LABS: BASOPHILS 0.1 %; BASOPHILS ABSOLUTE 0.01 10/3/uL (0.0-0.16); EOSINOPHILS 0.8 %; EOSINOPHILS ABSOLUTE 0.06 10/3/uL (0.0-0.53); HEMATOCRIT 29.8 % (36.0-48.0); HEMOGLOBIN 9.4 g/dL (12.0-16.0); IMMATURE GRANULOCYTES 0.1 %; IMMATURE GRANULOCYTES ABSOLUTE 0.01 10/3/uL (0.0-0.11); LYMPHOCYTES 7.9 %; LYMPHOCYTES ABSOLUTE 0.57 10/3/uL (0.67-4.30); MEAN CORPUS HGB CONC 31.5 g/dL (32.0-36.0); MEAN CORPUSCULAR HEMOGLOB 28.8 pg (26.0-34.0); MEAN CORPUSCULAR VOLUME 91.4 fL (80-100); MEAN PLATELET VOLUME 10.5 fL (9.2-13.0); MONOCYTES 14.3 %; MONOCYTES ABSOLUTE 1.04 10/3/uL (0.21-1.20); NEUTROPHILS 76.8 %; NEUTROPHILS ABSOLUTE 5.56 10/3/uL (2.02-8.40); PLATELET COUNT 146 10/3/uL (150-400); RBC DISTRIBUTION WIDTH 18.1 % (12.0-16.0); RED CELL COUNT 3.26 10/6/uL (4.0-5.6); WHITE BLOOD CELLS 7.3 10/3/uL (4.5-10.5)
[2016-11-07 04:46] LABS: MANUAL DIFF NO %
[2016-11-07 04:59] LABS: A/G RATIO 0.9 (0.7-1.9); ALBUMIN 2.4 G/DL (3.5-5.0); ALKALINE PHOSPHATASE 62 U/L (45-117); BUN (BLOOD UREA NITROGEN) 20 MG/DL (6-23); CALCIUM, SERUM 8.4 MG/DL (8.5-10.4); CHLORIDE, SERUM 106 MMOL/L (96-112); CREATININE 0.54 MG/DL (0.55-1.02); GFR AFRICAN AMERICAN 99 ML/MIN (>=60); GFR NON AFRICAN AMERICAN 85 ML/MIN (>=60); GLOBULIN 2.8 G/DL (2.5-4.1); GLUCOSE, SERUM 84 MG/DL (60-99); PHOSPHORUS, SERUM 2.2 MG/DL (2.5-4.5); POTASSIUM, SERUM 3.8 MMOL/L (3.5-5.3); SGOT(AST) 62 U/L (5-40); SGPT(ALT) 51 U/L (5-65); SODIUM, SERUM 145 MMOL/L (135-148); TOTAL BILIRUBIN 0.8 MG/DL (0-1.2); TOTAL PROTEIN 5.2 G/DL (6.0-8.5)
[2016-11-07 05:01] LABS: CO2 (CARBON DIOXIDE) 34 MMOL/L (24-34)
[2016-11-08 05:36] LABS: BUN (BLOOD UREA NITROGEN) 23 MG/DL (6-23); CALCIUM, SERUM 8.6 MG/DL (8.5-10.4); CHLORIDE, SERUM 105 MMOL/L (96-112); CO2 (CARBON DIOXIDE) 33 MMOL/L (24-34); CREATININE 0.52 MG/DL (0.55-1.02); GFR AFRICAN AMERICAN 100 ML/MIN (>=60); GFR NON AFRICAN AMERICAN 87 ML/MIN (>=60); GLUCOSE, SERUM 74 MG/DL (60-99); POTASSIUM, SERUM 3.8 MMOL/L (3.5-5.3); SODIUM, SERUM 142 MMOL/L (135-148)
[2016-11-08 05:37] LABS: BASOPHILS 0.3 %; BASOPHILS ABSOLUTE 0.02 10/3/uL (0.0-0.16); EOSINOPHILS 2.6 %; EOSINOPHILS ABSOLUTE 0.16 10/3/uL (0.0-0.53); HEMATOCRIT 32.6 % (36.0-48.0); HEMOGLOBIN 10.3 g/dL (12.0-16.0); IMMATURE GRANULOCYTES 0.2 %; IMMATURE GRANULOCYTES ABSOLUTE 0.01 10/3/uL (0.0-0.11); LYMPHOCYTES 16.4 %; LYMPHOCYTES ABSOLUTE 1.02 10/3/uL (0.67-4.30); MEAN CORPUS HGB CONC 31.6 g/dL (32.0-36.0); MEAN CORPUSCULAR HEMOGLOB 28.9 pg (26.0-34.0); MEAN CORPUSCULAR VOLUME 91.6 fL (80-100); MEAN PLATELET VOLUME 10.5 fL (9.2-13.0); MONOCYTES 17.4 %; MONOCYTES ABSOLUTE 1.08 10/3/uL (0.21-1.20); NEUTROPHILS 63.1 %; NEUTROPHILS ABSOLUTE 3.93 10/3/uL (2.02-8.40); PLATELET COUNT 174 10/3/uL (150-400); RBC DISTRIBUTION WIDTH 17.9 % (12.0-16.0); RED CELL COUNT 3.56 10/6/uL (4.0-5.6); WHITE BLOOD CELLS 6.2 10/3/uL (4.5-10.5)
[2016-11-08 05:40] LABS: MANUAL DIFF NO %
[2016-11-08] MEDS ORDERED: ASAB PO (11:16)
[2016-11-08] MEDS ORDERED: NORV5 PO (11:17)
[2016-11-08] MEDS ORDERED: PLAVIX PO (11:19)
[2016-11-08] MEDS ORDERED: LOP25 PO (11:19)
[2016-11-08] MEDS ORDERED: CORDARONE PO (13:15)
== END 2016-11-08 16:45 | disposition home or self-care (01) | DRG 266 ==
LOC: SDC/OF 05:27 → CVICU 09:43 → 5NO 11-05 10:19 → CVICU 11-05 10:31 → 5NO 11-05 13:54
PROVIDERS: Anesthesiology; Internal Medicine Cardiovascular Disease; Thoracic Surgery (Cardiothoracic Vascular Surgery)
PROC: 02RF38Z Replacement of Aortic Valve with Zooplastic Tissue, Percutaneous Approach (ICD-10-PCS; principal; 2016-11-03 07:00)
PROC: 0PH000Z Insertion of Rigid Plate Internal Fixation Device into Sternum, Open Approach (ICD-10-PCS; 2016-11-03 07:00)
PROC: B246ZZ4 Ultrasonography of Right and Left Heart, Transesophageal (ICD-10-PCS; 2016-11-03 07:00)
DX: I35.0 Nonrheumatic aortic (valve) stenosis (principal); I50.33 Acute on chronic diastolic (congestive) heart failure; J95.821 Acute postprocedural respiratory failure; G93.40 Encephalopathy, unspecified; I44.7 Left bundle-branch block, unspecified; I48.2 Chronic atrial fibrillation; Z00.6 Encounter for examination for normal comparison and control in clinical research program; I25.10 Atherosclerotic heart disease of native coronary artery without angina pectoris; E78.5 Hyperlipidemia, unspecified; I10 Essential (primary) hypertension; I73.9 Peripheral vascular disease, unspecified; Z82.49 Family history of ischemic heart disease and other diseases of the circulatory system; Z79.899 Other long term (current) drug therapy; Z87.891 Personal history of nicotine dependence; Z91.81 History of falling; M19.90 Unspecified osteoarthritis, unspecified site; Z90.710 Acquired absence of both cervix and uterus; Z90.49 Acquired absence of other specified parts of digestive tract; Z88.0 Allergy status to penicillin; J44.9 Chronic obstructive pulmonary disease, unspecified
CPT/HCPCS: 36415; 71010; 71020; 80048; 80053; 80069; 81001; 82330; 82803; 82805; 82947; 82962; 83036; 83735; 83880; 84100; 84132; 84295; 85014; 85018; 85025; 85049; 85347; 85610; 85730; 86850; 86900; 86901; 86920; 87641; 93005; 93306; 93312; 93320; 93325; 94640; 94660; 94667; 94668; A9270-GY; C1713; C1769; C1894; J0282; J0690; J1120; J1644; J1940; J2250; J2370; J2405; J2710; J2720; J2795; J3010; J3475